=== PATIENT | male | born 1995 | race Hispanic/Latino ===

== ENCOUNTER 2018-02-07 04:57 | Emergency (ER) | payer SELFPAY, OTHER | END 2018-02-07 07:05 | disposition home or self-care (01) | LOC: ERS 04:57 | DX: F10.129 Alcohol abuse with intoxication, unspecified (principal); F17.210 Nicotine dependence, cigarettes, uncomplicated; Z71.6 Tobacco abuse counseling | CPT/HCPCS: 96360; 99406 ==